=== PATIENT | male | born 1960 | race Caucasian/White ===

== ENCOUNTER 2020-06-05 17:24 | Emergency (ER) | payer OTHER ==
[~2020-06-05] VITALS: Ht 182.9 cm; Wt 73.4 kg
[2020-06-05 17:38] VITALS: BP 134/81
== END 2020-06-05 19:06 | disposition left against medical advice (07) ==
LOC: ER 17:25
DX: M25.572 Pain in left ankle and joints of left foot (principal); Z53.21 Procedure and treatment not carried out due to patient leaving prior to being seen by health care provider